=== PATIENT | female | born 1980 | race Caucasian/White ===

== ENCOUNTER 2023-11-17 23:04 | Observation (INO) | payer MEDICARE, OTHER, SELFPAY ==
[2023-11-17 17:19] VITALS: BP 105/81
[2023-11-17 17:35] LABS: % Basophils 0.6 % (0-2); % Eosinophils 8.6 % (0-6); % Lymphocytes 36.5 % (20.5-51.1); % Monocytes 6.8 % (1.7-9.3); % Neutrophils 47.5 % (42.2-75.2); Absolute Eosinophils 0.4 10^3/uL (0-0.7); Absolute Lymphocytes 1.7 10^3/uL (1.2-3.4); Absolute Monocytes 0.3 10^3/uL (0.1-0.6); Absolute Neutrophils 2.3 10^3/uL (1.4-6.5); Hematocrit 35.7 % (37.0-47.0); Hemoglobin 12.2 g/dL (12.0-16.0); Mean Corp Hgb Conc. 34.2 g/dL (33.0-37.0); Mean Corpuscular Hgb 31.4 pg (27.0-31.0); Mean Platelet Volume 12.3 fL (7.4-10.4); Nucleated Red Blood Cells % 0 %; Platelet Count 237 10^3/uL (130-400); Red Blood Cell Count 3.88 10^6/uL (4.20-5.40); Red Cell Dist. Width 12.6 % (11.5-14.5); White Blood Cell Count 4.7 10^3/uL (4.8-10.8)
[2023-11-17 17:51] LABS: HCG, Serum Qualitative Screen Negative
[2023-11-17 17:53] LABS: ALT (SGPT) 21 U/L (0-35); AST (SGOT) 21 U/L (14-36); Albumin 3.7 g/dl (3.5-5.0); Alkaline Phosphatase 70 U/L (38-126); Blood Urea Nitrogen 10 mg/dl (7-17); Calcium 8.9 mg/dl (8.4-10.2); Carbon Dioxide 28 mmol/L (22-30); Chloride 104 mmol/L (98-107); Glucose 100 mg/dl (70-99); Potassium 4.2 mmol/L (3.5-5.1); Sodium 137 mmol/L (135-145); Total Bilirubin 0.4 mg/dl (0.2-1.3); Total Protein 7.1 g/dl (6.3-8.2); eGFR > 60.00
[2023-11-17 18:00] VITALS: BP 100/72
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
[2023-11-17 19:00] VITALS: BP 104/86
[2023-11-17] MEDS: SOMA 350 MG PO (19:34)
[2023-11-17 22:28] VITALS: BP 110/78
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
[2023-11-17 23:54] VITALS: BP 109/73; BMI 23.6
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
[2023-11-18 07:30] VITALS: BP 89/61
[2023-11-18 08:08] LABS: Hematocrit 38.4 % (37.0-47.0); Hemoglobin 12.8 g/dL (12.0-16.0); Mean Corp Hgb Conc. 33.3 g/dL (33.0-37.0); Mean Corpuscular Hgb 31.7 pg (27.0-31.0); Mean Platelet Volume 12.5 fL (7.4-10.4); Platelet Count 223 10^3/uL (130-400); Red Blood Cell Count 4.04 10^6/uL (4.20-5.40); Red Cell Dist. Width 12.4 % (11.5-14.5)
[2023-11-18] MEDS: TYLENOL 1000 MG PO ×3 (08:12→22:06)
[2023-11-18] MEDS: NEURONTIN 300 MG PO ×3 (08:12→22:06)
[2023-11-18] MEDS: MIRALAX 17 GRAMS PO ×2 (08:12→20:46)
[2023-11-18] MEDS: COLACE 100 MG PO ×2 (08:12→20:45)
[2023-11-18] MEDS: CYMBALTA DELAYED RELEASE 30 MG PO (08:12)
[2023-11-18] MEDS: VALIUM 5 MG PO ×2 (08:12→13:40)
[2023-11-18] MEDS: PROTONIX 40 MG PO (08:12)
[2023-11-18] MEDS: HEPARIN 5000 UNITS SC ×2 (08:13→20:45)
[2023-11-18 08:35] LABS: Blood Urea Nitrogen 14 mg/dl (7-17); Calcium 8.7 mg/dl (8.4-10.2); Carbon Dioxide 27 mmol/L (22-30); Chloride 106 mmol/L (98-107); Estimated Creatinine Clearance 114 ml/min; Glucose 102 mg/dl (70-99); Potassium 4.2 mmol/L (3.5-5.1); Sodium 140 mmol/L (135-145); eGFR > 60.00
[2023-11-18 09:04] LABS: TSH Reflex To Free T4 0.94 uIU/ml (0.47-4.68)
--- NOTE | 2023-11-18 09:27 | PTOTSP ---
ST Evaluation
Oropharyngeal function appears intact at the bedside. Speech/language/voice at reported baseline.
Recommend
1. Continue Regular Solids / Thin liquids - pt to select/avoid foods from menu
2. Aspiration and reflux/NORMA precautions
3. Small bites, moisten solids with gravy/sauce and slow rate
4. Meds oral per pt preference and RN discretion
5. No further acute SMT TECHNICIAN needs. SMT TECHNICIAN signing off please reconsult as needed
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
[2023-11-18] MEDS: DULCOLAX 10 MG RECTAL (12:12)
[2023-11-18] MEDS: FLEXERIL 5 MG PO (13:40)
[2023-11-18] MEDS: FLEET MINERAL OIL ENEMA 133 ML RECTAL (13:40)
[2023-11-18 15:37] VITALS: BP 92/63
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
[2023-11-18 20:28] VITALS: BP 104/65
--- NOTE | 2023-11-18 20:28 | PTCARENOTE ---
Addendum entered by Bill Tirado RN 11/18/23 22:03:
SHAPING MACHINE TENDER assessed pt. with RN. Pt. still appears to be slightly drowsy but alert. SHAPING MACHINE TENDER expressed concern about over sedation with scheduled medications but pt. made it clear that her pain management is aware and okay with her being on the specific
regiment that she is on. Pt. also took sips of water in front of SHAPING MACHINE TENDER and RN and tolerated that fine w/o any coughing or wet/gurgle sounds.
Addendum entered by Bill Tirado RN 11/18/23 20:41:
Pt. now awake and alert, still slightly drowsy but adamant on receiving her medications that are concerning for over sedation. SHAPING MACHINE TENDER notified, will come up to floor to assess patient prior to med administration.
Original Note:
RN went to assess pt. found pt. to be heavily sedated and withdrawn. RN called out to pt. and pt. responded by opening eyes and then immedietly closing them. RN called out to pt. again but unable to get response. RN. sternal rubbed pt. pt. briefly
awoke but began rambling under breath. BP: 104/65, HR: 101, O2: 96, RR: 16 , T: 98 (ax due to pt. being asleep with mouth open). SHAPING MACHINE TENDER made aware discussed that it is not safe to give pt. medications due to aspiration risk.
[2023-11-18] MEDS: VALIUM 10 MG PO (22:10)
[2023-11-18] MEDS: FLEXERIL 10 MG PO (22:11)
[2023-11-18] MEDS: SENOKOT 17.1999999999999993 MG PO (22:11)
[2023-11-18] MEDS: ROXICODONE 10 MG PO (23:11)
[2023-11-18 23:50] VITALS: BP 100/66
[2023-11-19 07:00] VITALS: BP 94/60
[2023-11-19] MEDS: COLACE 100 MG PO ×2 (08:12→21:08)
[2023-11-19] MEDS: PROTONIX 40 MG PO (08:13)
[2023-11-19] MEDS: NEURONTIN 300 MG PO ×3 (08:13→21:21)
[2023-11-19] MEDS: HEPARIN 5000 UNITS SC ×2 (08:13→21:10)
[2023-11-19] MEDS: TYLENOL 1000 MG PO ×3 (08:13→21:06)
[2023-11-19] MEDS: MIRALAX 17 GRAMS PO ×2 (08:13→21:05)
[2023-11-19] MEDS: FLEXERIL 10 MG PO ×3 (08:14→21:07)
[2023-11-19] MEDS: FLUSH (NSS) 1 FLUSH IV ×2 (08:14→16:10)
[2023-11-19] MEDS: VALIUM 5 MG PO ×2 (08:14→14:34)
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
--- NOTE | 2023-11-19 14:43 | W.PN.UPDATE ---
Update Note
Progress Note Update
Long talk had with patient's mother, Vanna, this morning. She states patient has been suffering the past 2 1/2 years and she does not feel like her outpatient physicians are communicating with each other. She said that patient's prior orthopedist
told her she cannot do physical therapy 2/2 shoulder dislocation. She has a telemedicine appointment with surgeon in the next week to discuss other therapy options. She told me her prior neurosurgeon told her no further cervical spine surgery
could be offered. Rey asked if I could refer to a local automotive repair technician and painter mirror. She was told she needs to make PCP appointment on her own. I referred to Dr. Lucero at discharge.
I explained to Vanna that is not a hospital with trauma surgeons and I cannot offer new interventions for her care. I suggest she continue with the scheduled appointments (upcoming one this week to discuss elbow hardware).
We spoke about a trauma therapist and her mother stated she has been researching but cannot find anyone. She also stated she had spoken to a few people who stated Sindy was out of their scope of care but then didn't offer other referrals..
Rey called back after our conversation asking if I thought palliative care would be a good idea and if they should look into hospice. I reached out to to offer palliative care resources.
[2023-11-19] MEDS: ROXICODONE 10 MG PO ×2 (14:51→21:21)
[2023-11-19 15:00] VITALS: BP 123/74
--- NOTE | 2023-11-19 15:43 | CM ---
Pt given list of manager inspection from as requested.
Spoke with mom Vanna [phone] she requested Palliative care and Jose MOHAMUD.
Both referral entered in care port.
Spoke with [place] [facility] intake they [place] have Palliative [place] hence Palliative care placed in care port.
Vanna aware of above .
Pt requested need medical nec form for ambulance transport.
Spoke with Melonie from [facility] [place] test technician RN she received referral and she said they can offer additional support also with .
Vanna asked for Pain management MD from ,Dr Briceno gave her name of DR Lucero, Psychiatric care with [facility].
Vanna said pt was unable to get leg prosthesis due to her upper body strength would need to be resolved first.
PLAN Home with Jose MOHAMUD fax [phone] and Palliative care.
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
[2023-11-19] MEDS: TORADOL 15 MG IV (16:09)
--- NOTE | 2023-11-19 17:42 | PTCARENOTE ---
Pt's mother stating 'nothing is working'; pt still has posterior neck pain/spasms; pt/mother requesting O2 nc- pt's pulseox currently 96%, no resp distress noted. Pt's mother insisting the pt is not receiving correct medications; Dr. Briceno
notified; will call pt's mother is room to discuss situation.
[2023-11-19 19:18] VITALS: BP 107/73
--- NOTE | 2023-11-19 19:45 | PTCARENOTE ---
pt transferred to [facility] with all belongings
[2023-11-19 20:25] VITALS: BP 124/80
[2023-11-19] MEDS: VALIUM 10 MG PO (21:08)
[2023-11-19] MEDS: SENOKOT 17.1999999999999993 MG PO (21:09)
[2023-11-19 23:05] VITALS: BP 106/67
--- NOTE | 2023-11-20 00:46 | PTCARENOTE ---
Patient transferred from [facility] via hospital bed. Patient alert and oriented. Oriented to unit. Call jovel within reach.
[2023-11-20 06:41] VITALS: BMI 21.4
[2023-11-20 07:48] VITALS: BP 102/67
[2023-11-20] MEDS: HEPARIN 5000 UNITS SC ×2 (08:15→19:34)
[2023-11-20] MEDS: MIRALAX 17 GRAMS PO ×2 (08:15→19:29)
[2023-11-20] MEDS: COLACE 100 MG PO ×2 (08:15→19:34)
[2023-11-20] MEDS: ROXICODONE 10 MG PO ×3 (08:16→23:08)
[2023-11-20] MEDS: NEURONTIN 300 MG PO ×2 (08:16→21:07)
[2023-11-20] MEDS: VALIUM 5 MG PO ×2 (08:16→13:11)
[2023-11-20] MEDS: PROTONIX 40 MG PO (08:16)
[2023-11-20] MEDS: TYLENOL 1000 MG PO ×3 (08:16→21:09)
[2023-11-20] MEDS: FLEXERIL 10 MG PO ×3 (08:58→21:07)
[2023-11-20] MEDS: TORADOL 15 MG IV (09:52)
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
[2023-11-20 15:15] VITALS: BP 101/67
--- NOTE | 2023-11-20 17:04 | CM ---
Patient seen at bedside. Patient mother and physician talked for long time. Patient asking for pain management. Wound care asking for hospital bed at home due to pain issues. [facility]. CM will continue to follow for discharge planning
needs.
Plan; home with [facility]; DME as needed.
[2023-11-20] MEDS: MORPHINE SULFATE 1 MG IV (17:12)
[2023-11-20] MEDS: SENOKOT 17.1999999999999993 MG PO (21:07)
[2023-11-20] MEDS: VALIUM 10 MG PO (23:08)
[2023-11-20 23:46] VITALS: BP 121/85
[2023-11-21] MEDS: MORPHINE SULFATE 1 MG IV (02:44)
[2023-11-21 05:18] VITALS: BP 110/79
[2023-11-21 07:53] VITALS: BP 117/78
[2023-11-21] MEDS: MIRALAX 17 GRAMS PO (08:31)
[2023-11-21] MEDS: PROTONIX 40 MG PO (08:32)
[2023-11-21] MEDS: TYLENOL 1000 MG PO ×3 (08:32→22:06)
[2023-11-21] MEDS: VALIUM 5 MG PO ×2 (08:33→13:14)
[2023-11-21] MEDS: COLACE 100 MG PO (08:33)
[2023-11-21] MEDS: ROXICODONE 10 MG PO ×3 (08:33→21:38)
[2023-11-21] MEDS: FLEXERIL 10 MG PO ×3 (08:34→21:37)
[2023-11-21] MEDS: HEPARIN SC ×2 (08:39→20:38)
[2023-11-21] MEDS: NEURONTIN 300 MG PO ×3 (08:41→21:37)
[2023-11-21 11:12] VITALS: PULSE 97; O2SAT 97
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
--- NOTE | 2023-11-21 12:24 | W.PN.UPDATE ---
Update Note
Progress Note Update
Patient is in need of a semi-electric hospital bed with foam mattress and gel overlay due to the need to elevate head of bed above 30 degrees to prevent aspiration and to facilitate frequent repositioning to prevent bed ulcers and pressure points.
--- NOTE | 2023-11-21 14:39 | VNURNOTE ---
Home Health Liaison met with patient and mother at 1300 to discuss [facility] nurse/therapy, visits, schedule and homebound status. Patient's mother is agreeable and understands that visits at home will be 2-3 x per week to assess and teach medical
management. Patient was mostly tearful during the conversation but is agreeable to [facility].
Liaison notified by Palliative Care that they can not service patient's area. Patient and her mother were updated.
CM updated.
[facility] brochure provided with contact information. Both patient and her mother are aware that [facility] will contact them for start of care in 1-2 days after discharge from .
[facility] referral completed in Care Port.
Hospital bed ordered with [facility] unable to service area)
Initial information faxed to [facility] at 1210, notes at 1230.
Call to [facility] at 1400 to confirm, but they are not able to confirm that information has been received.
[facility] is aware that patient is for discharge today,.
[2023-11-21 15:08] VITALS: BP 103/84
--- NOTE | 2023-11-21 15:29 | CM ---
Patient seen at bedside with mother and physician. Plan for discharge home with [facility] and hospital bed. CM reviewed discharge plan and physician reviewed all questions regarding medication and follow up appointments with prior physicians/pain
management doctors. Patient calm when discussing plan for medications and DME. Patient mother now requesting patient leave tomorrow via ambulance as per nursing she cancelled the aide that was scheduled for today. Per [facility] liaison bed in process.
Palliative care information to be provided to mother at her request. CM will continue to follow for discharge planning needs.
Plan; home with [facility], bed ordered for delivery tonight.
[2023-11-21] MEDS: MIRALAX PO (20:38)
[2023-11-21] MEDS: COLACE PO (20:39)
[2023-11-21] MEDS: VALIUM 10 MG PO (21:46)
[2023-11-21] MEDS: SENOKOT 17.1999999999999993 MG PO (22:07)
[2023-11-21 22:35] VITALS: BP 133/87
[2023-11-22 07:55] VITALS: BP 108/69
[2023-11-22] MEDS: VALIUM 5 MG PO ×2 (08:54→14:27)
[2023-11-22] MEDS: TYLENOL 1000 MG PO ×2 (08:54→15:54)
[2023-11-22] MEDS: PROTONIX 40 MG PO (08:54)
[2023-11-22] MEDS: ROXICODONE 10 MG PO ×2 (08:54→14:27)
[2023-11-22] MEDS: FLEXERIL 10 MG PO ×2 (08:54→14:27)
[2023-11-22] MEDS: MIRALAX 17 GRAMS PO (08:54)
[2023-11-22] MEDS: HEPARIN SC ×2 (08:54→09:19)
[2023-11-22] MEDS: COLACE 100 MG PO (08:55)
[2023-11-22] MEDS: NEURONTIN 300 MG PO (08:55)
--- NOTE | 2023-11-22 10:17 | VNURNOTE ---
Call to patient's mother now to clarify status of hospital bed delivery.
Mother stated 'we are holding off for now, because it is probably like a bed she had before, and that isn't what she needs'
Mother has [facility] contact number and will call if they change their minds.
--- NOTE | 2023-11-22 11:35 | CM ---
Addendum entered by Kriss Aldridge 11/22/23 16:55:
Patient mother refuses SNF referrals for patient and indicates that she is open to anti anxiety medications. mother asking about neuro surgery and alternative beds for spinal patients. CM updated physician regarding patient mother requests. CM will
continue to follow for discharge planning needs.
Plan; home with [facility] and aides
Addendum entered by Kriss Aldridge 11/22/23 14:09:
Patient mother called back to say that it would not work for patient to go to [facility] and that her daughter would be discharged home today. CM updated nursing and completed transportation forms. CM will continue to follow for discharge planning
needs.
Plan; home today with [facility] and aides to follow
Addendum entered by Kriss Aldridge 11/22/23 12:06:
CM spoke with mother who requested CM send referral to [facility] for possible stc placement. CM reviewed with mother that patient was OBS and discharged. CM sent referral to SNF, Patient mother to tour and speak with patient about
options. Patient mother indicated that there is an aide during the day and that the night and weekend persons were 'haphazard'.
Original Note:
Patient mother not present at Bedside, CM and physician met with patient. Patient acknowledged that patient mother had declined the bed but asked CM to talk to patient mother. CM provided additional palliative care information. CM will call to
mother to review discharge planning needs.
Plan; discharge home with [facility],
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
[2023-11-22 15:59] VITALS: BP 137/66
--- NOTE | 2023-11-22 16:06 | W.PN.UPDATE ---
Addendum entered and electronically signed by Ekta Vaughn MD 11/22/23 17:21:
Ordered patient milk of molasses enema as pt did not feel the suppository was adequate--Mother was demanding a neurosurgery consult and I explained that I am not calling neurosurgery to get a whole new set of doctors involved when she does have
physicians that she should follow-up with that know her well
I have explained yet again that I am not changing her pain medications that that will be up to her pain management specialists--I did give an extra dose of oral medication but will not be changing any further dosing
Mother then requested that we move her to a 'spinal care bed'--case management explained to the mother that we do not have that type of bed here in the hospital --and again offered the possibility of group home facility for placement--they
again declined that option
All of her imaging studies done here are either negative or chronic.
Original Note:
Update Note
Progress Note Update
Asked to call mother as she had questions... Spoke with patient's mother by phone, she stated that something needs to be done with the patient's pain--I did explain yet again that she needs to return to her doctors for further therapeutic options to
which she replied 'we had a telemedicine visit with them yesterday, and they said that nothing can be done'--I then said that she would need to follow-up with her normal pain management doctor or her new pain management doctor (Dr. Lucero) as soon
as possible as I would not change the medications, to which she then replied 'no one answered at Dr. Lucero's office'--I told her I will give her a one-time dose of medication IV, at which point she says she does not have an IV in--I then said I
would agree to give 50 mg of oral Roxicodone now but that I was still not changing the medications
She then stated that Sindy has been complaining of constipation and cannot relieve herself--so I said that I would give a suppository for assistance
She then asked if the patient is still being discharged today to which I replied yes as that has been the plan
[2023-11-22] MEDS: DULCOLAX 10 MG RECTAL (16:23)
[2023-11-22] MEDS: ROXICODONE 15 MG PO (16:23)
--- NOTE | 2023-11-22 18:30 | PTCARENOTE ---
Pt presents today c/o increasing anxiety and pain. Scheduled meds given as ordered: flexeril, roxycodone, and valium. Pt tearful and c/o of neck pain and LUE pain. Pt and mother express concern for being DC'd today. Multiple TT's and phone calls to
Dr. Vaughn and CM to relay concerns. Addt. pain medication order rec'd and given. Pt also c/o of constipation. Suppository given with + large BM before DC. Pt refused enema. Discussed at length with Pt and mother continuing care with [facility]
docs who performed Pt's extensive surgery and the importance of continuity of care... as well as VN/Homecare and pain mgmt needs. Pt DC'd to home via [facility] transport.
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
== END 2023-11-22 18:26 | disposition home health service (06) ==
LOC: 4 WEST ACU 23:04
PROVIDERS: ADMITTING PHYSICIAN Hospitalist; ATTENDING PHYSICIAN Internal Medicine; EMERGENCY PHYSICIAN Emergency Medicine; FAMILY PHYSICIAN Family Medicine
DX: G89.21 Chronic pain due to trauma (principal); R06.02 Shortness of breath; M79.89 Other specified soft tissue disorders; H92.01 Otalgia, right ear; R06.00 Dyspnea, unspecified; F41.9 Anxiety disorder, unspecified; R49.1 Aphonia; R53.1 Weakness; F32.9 Major depressive disorder, single episode, unspecified; R91.8 Other nonspecific abnormal finding of lung field; V89.2XXS Person injured in unspecified motor-vehicle accident, traffic, sequela; Z74.01 Bed confinement status; Z89.512 Acquired absence of left leg below knee; Z79.891 Long term (current) use of opiate analgesic; M79.605 Pain in left leg; R22.42 Localized swelling, mass and lump, left lower limb
CPT/HCPCS: 70450; 71250; 71275; 72125; 76882; 80048; 80053; 84443; 84703; 85025; 85027; 92610; 93971; 97163; 97167; 97530; 99285; G0378; Q9967